=== PATIENT | male | born 1995 | race Caucasian/White ===

== ENCOUNTER 2024-09-05 17:44 | Emergency (ER) | payer BC ==
[~2024-09-05] VITALS: Ht 190.5 cm; Wt 115.2 kg
[2024-09-05] MEDS ORDERED: NS 1,000 ML IV SCH (18:05)
[2024-09-05 18:27] LABS: Source, Urine Clean Catch
[2024-09-05 18:30] LABS: BASOPHILS ABSOLUTE AUTO 0.04 K/mm3 (0.00-0.23); BASOPHILS PERCENT AUTO 1 % (0-2); EOSINOPHILS ABSOLUTE AUTO 0.08 K/mm3 (0.00-0.68); EOSINOPHILS PERCENT AUTO 1 % (0-6); Hematocrit 41.3 % (37.0-53.0); Hemoglobin 14.7 g/dL (13.5-17.5); IMMATURE GRAN ABSOLUTE AUTO 0.02 K/mm3 (0.00-0.10); IMMATURE GRAN PERCENT AUTO 0 % (0-1); LYMPHOCYTES ABSOLUTE AUTO 1.67 K/mm3 (0.84-5.20); LYMPHOCYTES PERCENT AUTO 22 % (21-46); MONOCYTES ABSOLUTE AUTO 0.92 K/mm3 (0.16-1.47); MONOCYTES PERCENT AUTO 12 % (4-13); Mean Corpuscular HGB 30.4 pg (26.0-34.0); Mean Corpuscular HGB Conc 35.6 g/dL (31.5-36.5); Mean Corpuscular Volume 85 fL (80-100); Mean Platelet Volume 9.2 fL (9.1-12.4); NEUTROPHILS ABSOLUTE AUTO 4.87 K/mm3 (1.96-9.15); NEUTROPHILS PERCENT AUTO 64 % (41-73); Platelet Count 331 K/mm3 (150-400); RDW Coefficient Variation 11.7 % (11.7-14.2); RDW Standard Deviation 36.5 fL (35.1-46.3); Red Blood Cell Count 4.84 M/mm3 (4.30-5.90)
[2024-09-05 18:33] LABS: Appearance, Urine Clear (Clear); Bilirubin, Urine Neg (Neg); Blood, Urine Neg (Neg); Color, Urine Pale Yellow (P-Yellow); Glucose Qualitative, Urine Neg (Neg); Ketones, Urine 2+ (Neg); Leukocyte Esterase, Urine Neg (Neg); Nitrite, Urine Neg (Neg); Protein, Urine Neg (Neg); Urobilinogen, Urine NORM (Normal)
[2024-09-05 18:47] LABS: Albumin, Blood 3.9 g/dL (3.4-5.0); Albumin/Globulin Ratio 0.8 (0.8-1.8); Bilirubin, Total 0.8 mg/dL (0.1-1.0); Bun/Creatinine Ratio 14.7 (12.0-20.0); Calcium, Blood 9.4 mg/dL (8.5-10.1); Creatinine, Blood 0.82 mg/dL (0.60-1.20); Globulin, Blood 4.6 g/dL (2.2-4.0); Potassium, Blood 3.8 mmol/L (3.5-5.5); Total Protein, Blood 8.5 g/dL (6.4-8.2)
[2024-09-05] MEDS ORDERED: Ketorolac Tromethamine 30mg Vial IV ONE (21:05)
[2024-09-05] MEDS ORDERED: DiphenhydrAMINE HCl 50 MG/ML 1ML Vial IV ONE (21:05)
[2024-09-05] MEDS ORDERED: Metoclopramide HCl 5MG / ML 2ML Vial IV ONE (21:05)
[2024-09-05] MEDS ORDERED: Amoxicillin 500 MG Cap PO ONE (21:15)
[2024-09-05] MEDS ORDERED: AMOX500 PO (21:29)
== END 2024-09-05 21:42 | disposition home or self-care (01) ==
LOC: ER 17:44
PROVIDERS: Student in an Organized Health Care Education/Training Program
DX: J18.9 Pneumonia, unspecified organism (principal); E86.0 Dehydration; G43.909 Migraine, unspecified, not intractable, without status migrainosus
CPT/HCPCS: 71046; 80053; 81003; 82550; 84484; 85025; 93005; 93010; 96361; 96374; 96375; 99284-25; A9270; J1200; J1885; J2765; J7030